=== PATIENT | male | born 2000 | race Caucasian/White ===

== ENCOUNTER 2021-06-13 13:28 | Emergency (ER) | payer OTHER, SELFPAY ==
[2021-06-13 13:59] VITALS: BP 159/89; PULSE 91; RESP 18; TEMP 36.6; O2SAT 98
--- NOTE | 2021-06-13 14:36 | ED.URI ---
HPI - URI/Sore Throat General Chief Complaint: Upper Respiratory Infection Stated Complaint: cold/flu symptoms Source: patient Limitations: no limitations History of Present Illness HPI Narrative: The vaccinated patient, previously mostly healthy non-smoker/nondrinker, presents with 1/2-week history of mostly sore throat, congestion and mild minimal cough. Symptoms are mild, unrelieved with OTC preparations. No earache; no loss of taste/smell, CP, wheezing/sneezing, S OB-he had a prior noncontributory Covid test earlier in the month Signs remarkable for blood pressure is 159/89. The patient has been informed that they may have pre-hypertension or Hypertension based on a BP reading in the department. I recommend that the patient call the primary care provider listed on their discharge instructions or a physician of their choice this week to arrange follow up for further evaluation of possible pre-hypertension or Hypertension Related Data Home Medications Medication Instructions Recorded Confirmed metoprolol succinate 200 mg PO DAILY 06/13/21 06/13/21 Allergies Allergy/AdvReac Type Severity Reaction Status Date / Time No Known Allergies Allergy Verified 06/13/21 13:59 Review of Systems Review of Systems: General/Constitutional: No weight loss,fever Eyes: N0: Redness,discharge Ears/Nose/Throat: No: Epistaxis,ear discharge Respiratory: Denies: Hemoptysis Gastrointestinal: No Vomiting, Bleeding-rectal Skin: No Lumps, eruption Neurologic: No Focal Weakness,Sz Hematologic: Denies: Petechiae/Purpura Psychiatric: No: Suicida ideationl All Other Systems: Reviewed and Negative Exam Narrative: General Appearance: Well appearing, Well nourished EYE: PERRLA, Conjunctiva clear Ears: Auditory canal normal, TM normal Nose: Rhinorrhea, Mucousal erythema Mouth/Throat: MM moist, Uvula midline, Pharyngeal erythema Neck: Supple, No adenopathy Respiratory: No respiratory distress, Breath sounds equal, Clear to auscultation Cardiovascular: RRR, No JVD Musculoskeletal: Non tender, Normal strength Skin: Warm, Dry Neurological: A&O x3, CN II-XII intact Psychiatric: Normal mood, Normal affect Course Vital Signs Vital signs: Vital Signs Temperature 97.9 F 06/13/21 13:59 Pulse Rate 91 06/13/21 13:59 Respiratory Rate 18 06/13/21 13:59 Blood Pressure 159/89 H 06/13/21 13:59 Pulse Oximetry 98 06/13/21 13:59 Temperature 97.9 F 06/13/21 13:59 Pulse Rate 91 06/13/21 13:59 Respiratory Rate 18 06/13/21 13:59 Blood Pressure 159/89 H 06/13/21 13:59 Pulse Oximetry 98 06/13/21 13:59 MDM - URI/Sore Throat Lab Data Labs: Influenza A Screen Negative Reference Range: Negative Influenza B Screen Negative Reference Range: Negative Strep Screen Presumptive Negative *(Reference Range: Negative)* Discharge Plan Discharge Clinical Impression: Tonsil pain Patient Disposition: Home, Self-Care Condition: Stable Instructions: Pharyngitis (ED) Prescriptions: New azithromycin 250 mg tablet See Rx Instructions .ROUTE .COMPLEX Qty: 6 RF: 0 lidocaine HCl [Lidocaine Viscous] 2 % solution 5 ml MUCOUS MEM QID PRN (Reason: pain) Qty: 100 RF: 0 azelastine 137 mcg (0.1 %) aerosol,spray 137 mcg NASAL Q12H Qty: 30 RF: 0 No Action metoprolol succinate 200 mg tablet extended release 24 hr 200 mg PO DAILY RF: 0 Follow-up/Referrals: UNKNOWN,DOCTOR [Primary Care Provider] - Stand Alone Forms: Work/School Release IP
[2021-06-15 20:04] LABS: SARS-CoV-2 RNA PCR Negative
== END 2021-06-13 14:43 | disposition home or self-care (01) ==
PROVIDERS: Emergency Provider Emergency Medicine
DX: R07.0 Pain in throat (principal); Z20.822 Contact with and (suspected) exposure to COVID-19
CPT/HCPCS: 87081; 87804; 87880; 99203; C9803; G0463; U0003; U0005